=== PATIENT | male | born 1990 | race Caucasian/White ===

== ENCOUNTER 2021-04-29 10:46 | Emergency (ER) | payer MEDICAID ==
[2021-04-29] MEDS ORDERED: predniSONE 20 MG Tab PO ONE (13:33)
[2021-04-29] MEDS ORDERED: Azithromycin 250 MG Tab PO ONE (13:33)
[2021-04-29] MEDS ORDERED: Codeine/guaiFENesin 10-100 MG/5 ML Syrup 5 ML Cup PO ONE (13:34)
--- NOTE | 2021-04-29 13:44 | EDM.PDOC ---
Scribed by Yaneth Arenas 04/29/[address] NP ED HPI GENERAL MEDICAL PROBLEM - General Chief Complaint: Respiratory Problem Stated Complaint: MUCUS, FEELS REALLY HOT, BODY ACHES, COUGHING Time Seen by Provider: 04/29/21 13:10 Source of Information: Reports: Patient, RN, RN Notes Reviewed History Limitations: Reports: No Limitations - History of Present Illness INITIAL COMMENTS - FREE TEXT/NARRATIVE: Patient is a 30-year-old male who presents to ER with complaint of cough with phlegm and shortness of breath for the past couple of days. This began 3 days ago. No known exposure to COVID Vaccinated as well as for COVID. He has a cough and unable to sleep. He is feeling hot--unknown fever, vomiting, headache and body aches. No chills or diarrhea. Onset: Gradual Duration: Getting Worse Location: Reports: Generalized Quality: Reports: Ache Severity: Moderate Improves with: Reports: None Worsens with: Reports: None Associated Symptoms: Reports: No Other Symptoms Generalized Pain Score (Numeric/FACES): 8 - Related Data Allergies Allergy/AdvReac Type Severity Reaction Status Date / Time acetaminophen [From Tylenol] Allergy Hives Verified 04/29/21 11:09 Home Meds: Home Meds Ibuprofen 800 mg PO ASDIRECTED 04/29/21 [History] Past Medical History - Past Health History Medical/Surgical History: Denies Medical/Surgical History Social & Family History - Tobacco Use Tobacco Use Status *Q: Current Every Day Tobacco User Years of Tobacco use: 25 Packs/Tins Daily: 1 - Caffeine Use Caffeine Use: Reports: Coffee, Soda - Recreational Drug Use Recreational Drug Use: No ED ROS GENERAL - Review of Systems Review Of Systems: Comprehensive ROS is negative, except as noted in HPI. ED EXAM, GENERAL - Physical Exam Exam: See Below Exam Limited By: No Limitations General Appearance: Alert, WD/WN, No Apparent Distress Eye Exam: Bilateral Eye: EOMI, Normal Inspection, PERRL Ears: Normal External Exam, Normal Canal, Hearing Grossly Normal, Normal TMs Nose: Normal Inspection, Normal Mucosa, No Blood Throat/Mouth: Normal Inspection, Normal Lips, Normal Teeth, Normal Gums, Normal Oropharynx, Normal Voice, No Airway Compromise Head: Atraumatic, Normocephalic Neck: Normal Inspection, Supple, Non-Tender, Full Range of Motion Respiratory/Chest: Rhonchi Cardiovascular: Normal Peripheral Pulses, Regular Rate, Rhythm, No Edema, No Gallop, No JVD, No Murmur, No Rub GI/Abdominal: Normal Bowel Sounds, Soft, Non-Tender, No Organomegaly, No Distention, No Abnormal Bruit, No Mass (Male) Exam: Deferred Rectal (Males) Exam: Deferred Back Exam: Normal Inspection, Full Range of Motion, NT Extremities: Normal Inspection, Normal Range of Motion, Non-Tender, Normal Capillary Refill, No Pedal Edema Neurological: Alert, Oriented, CN II-XII Intact, Normal Cognition, Normal Gait, Normal Reflexes, No Motor/Sensory Deficits Psychiatric: Normal Affect, Normal Mood Skin Exam: Warm, Dry, Intact, Normal Color, No Rash Lymphatic: No Adenopathy Course - Vital Signs Last Recorded V/S: Last Vital Signs Temp 97.3 F 04/29/21 11:06 Pulse 114 H 04/29/21 11:06 Resp 15 04/29/21 11:06 BP 151/76 H 04/29/21 11:06 Pulse Ox 99 04/29/21 11:06 - Orders/Labs/Meds Orders: Active Orders 24 hr Category Date Time Status Isolation [COMM] Routine Oth 04/29/21 10:49 Active Labs: Laboratory Tests 04/29/21 Range/Units 10:53 SARS-CoV-2 RNA ([facility]) Negative (NEGATIVE) Departure - Departure Time of Disposition: 13:24 Disposition: Home, Self-Care 01 Condition: Fair Clinical Impression: Bronchitis - Discharge Information *PRESCRIPTION DRUG MONITORING PROGRAM REVIEWED*: No *COPY OF PRESCRIPTION DRUG MONITORING REPORT IN PATIENT CHRISTIAN: No Instructions: Acute Bronchitis, Adult, [id number], Upper Respiratory Infection, Adult, [id number] Forms: ED Department Discharge Additional Instructions: Rx: Azithromycin 250 mg, 2 tablets today, and then 1 tablet daily for the next 4 days Rx: Prednisone 20 mg, 2 tablets once daily beginning today for the next 5 days Rx: Cheratussin cough syrup 5 to 10 mL every 4-6 hours as needed for cough may make drowsy, do not drive well taking Drink plenty of water Follow-up with your primary care provider in the clinic May use [id number] decongestant as directed May use Tylenol and/or ibuprofen as directed for pain/fever Sepsis Event Note (ED) - Focused Exam Vital Signs: Vital Signs Temp Pulse Resp BP Pulse Ox 04/29/21 11:06 97.3 F 114 H 15 151/76 H 99 - My Orders Last 24 Hours: My Active Orders 04/29/21 10:49 Isolation [COMM] Routine - Assessment/Plan Last 24 Hours: My Active Orders 04/29/21 10:49 Isolation [COMM] Routine I have read and agree with the documentation that has been completed regarding this visit. By signing this record, I attest that the documentation was c ompleted in my physical presence and is an accurate record of the encounter.
== END 2021-04-29 13:44 | disposition home or self-care (01) ==
LOC: DL.ED 10:46
DX: J40 Bronchitis, not specified as acute or chronic (principal); Z72.0 Tobacco use; Z88.8 Allergy status to other drugs, medicaments and biological substances; Z20.822 Contact with and (suspected) exposure to COVID-19
CPT/HCPCS: 87635; 87804; 99284; A9270; J7512; U0002